=== PATIENT | female | born 1995 | race Caucasian/White ===

== ENCOUNTER 2020-08-29 13:50 | Emergency (ER) | payer OTHER ==
--- NOTE | 2020-08-29 13:57 | PDOC ---
History of Present Illness - General Chief Complaint: Pain, Acute Stated Complaint: bARTHOLIN CYST Time Seen by Provider: 08/29/20 13:54 - History of Present Illness Initial Comments: 08/29/20 13:56 HPI: This is a 24 y/o female with no PMH presenting to the ED with pain and swelling of her left labia x4 days. The pain and swelling grew progressively worse and the patient went to urgent care yesterday. They told her she possibly had a cyst, and prescribed Clindamycin and Clotrimazole. Pt reports they didn't drain it, possibly because it was so swollen. She incidentally has an appointment with her gospel singer (Kate Azevedo) this upcoming , however the pain increased which is what brought her into the ER today. Denies previous hx of Bartholin cyst. Denies vaginal discharge, dysuria, hematuria, fever/chills, N/V. ROS: GENERAL/CONSTITUTIONAL: No fever/chills HEENT: No change in vision. No blurry vision CARDIOVASCULAR: No chest pain, palpitations RESPIRATORY: No shortness of breath GASTROINTESTINAL: No abdominal pain, nausea, vomiting GENITOURINARY: No dysuria, frequency, or change in urination. MUSCULOSKELETAL: No joint or muscle swelling or pain. SKIN: Swelling and pain left side of vagina NEUROLOGIC: No headache, vertigo PMH: Denied PSx: Denied Social Hx: Denied etoh, tobacco, drug use Meds: See nurse note Allergies: See nurse note PE: GENERAL: Awake, alert, and fully oriented, standing in room because of discomfort. HEENT: Normocephalic, atraumatic. PERRLA, EOMI. No conjunctival pallor. Moist mucous membranes. NECK: Normal ROM and supple. No lymphadenopathy, JVD, or masses. CARDIOVASCULAR: Regular rate and rhythm, normal S1 and S2, no murmurs, rubs or gallops PULMONARY: No respiratory distress. Breath sounds equal, clear to auscultation bilaterally. ABDOMEN: Soft, nontender, normoactive bowel sounds. No guarding, no rebound. No masses EXTREMITIES: Normal range of motion, no edema or erythema NEUROLOGICAL: Cranial nerves II through XII grossly intact. PSYCHIATRIC: Appropriate affect. Cooperative PELVIC: Erythema and swelling of left labia. Area of fluctuance of left lower labia. Extremely tender to palpation. MDM: This is a 24 y/o female with no PMH presenting to the ED with pain and swelling of her left labia x4 days. - Significant swelling, erythema and tenderness of left labia - Clear area of fluctuance - I&D as per procedure note - Large amounts of pus was expressed - Patient stable to d/c with follow-up obgyn and return precautions 08/29/20 18:03 Past History - Medical History Allergies/Adverse Reactions: Allergies Allergy/AdvReac Type Severity Reaction Status Date / Time No Known Allergies Allergy Unverified 08/29/20 14:16 Home Medications: Ambulatory Orders Clindamycin 300 mg PO QID 08/29/20 Procedures - Incision and Drainage I&D Site: Left: Bartholin Anesthesia: 1% Lidocaine Volume(ml): 3 Blade Size: 11 Attempts: 1 Plain Packing: No Complications: none Dressing: Yes Discharge - Discharge Information Problems reviewed: Yes Clinical Impression/Diagnosis: Bartholin cyst Condition: Stable Disposition: HOME - Follow up/Referral - Patient Discharge Instructions Patient Printed Discharge Instructions: DI for Bartholin Gland Cyst Additional Instructions: You were seen in the ED today for an infected Bartholin cyst which we drained. Continue taking the Clindamycin that was prescribed to you. You can discontinue the Clotrimazole Follow-up with your Professor Of Musicology on . You can buy Witch Litzy from the stores, soak panty liners in it, and then place it in the area to help with the inflammation. You can use ice as needed for the swelling and pain. You should soak the area in saltwater baths for 20 minutes 2x per day. Return to the ED with any new or worsening symptoms. Return if the pain and swelling worsen, you develop a fever, or if you have any other concerning symptoms. - Post Discharge Activity
--- NOTE | 2020-08-29 14:00 | PDOC ---
Attending Attestation - Resident Resident Name: Uzma Wong - ED Attending Attestation I have performed the following: I have examined & evaluated the patient, The case was reviewed & discussed with the resident, I agree w/resident's findings & plan, Exceptions are as noted - HPI HPI: 24 yo F presents with L sided labial swelling for the past 3 days. She went to an urgent care with the same, was diagnosed with bartholin cyst, started on clindamycin and clotrimazole, and advised to f/u with blood coordinator to have it drained. She has an appointment with her blood coordinator in 2 days, but she was unable to tolerate the pain anymore. Denies fever. +Severe labial pain with vulvar swelling. Unable to sit without difficulty. - Physicial Exam PE: GENERAL: Awake, alert, and fully oriented, in no acute distress HEAD: No signs of trauma EYES: PERRLA, EOMI, sclera anicteric, conjunctiva clear ENT: Auricles normal inspection, hearing grossly normal, nares patent, oropharynx clear without exudates. Moist mucosa NECK: Normal ROM, supple, no lymphadenopathy, JVD, or masses LUNGS: Breath sounds equal, clear to auscultation bilaterally. No wheezes, and no crackles HEART: Regular rate and rhythm, normal S1 and S2, no murmurs, rubs or gallops ABDOMEN: Soft, nontender, normoactive bowel sounds. No guarding, no rebound. No masses EXTREMITIES: Normal range of motion, no edema. No clubbing or cyanosis. No cords, erythema, or tenderness NEUROLOGICAL: Cranial nerves II through XII grossly intact. Normal speech, normal gait. Motor and sensation intact SKIN: Warm, dry, normal turgor, no rashes or lesions noted. : +Significant vulvar swelling to labia minora, worse on L side. +Tenderness and induration to the L labia minora, with a central fluctuant lesion. - Medical Decision Making 08/29/20 14:45 Bartholin cyst was I&D'd as noted in resident note. Copious purulent material obtained on the first attempt with small incision. Patient tolerated well, minimal blood loss. Counseled patient to use cool compresses for the local swelling, witch mani on a pantiliner. Also recommended warm salt water soaks twice per day. Stable for DC home. Discharge - Discharge Information Problems reviewed: Yes Clinical Impression/Diagnosis: Bartholin cyst Condition: Stable Disposition: HOME - Follow up/Referral - Patient Discharge Instructions - Post Discharge Activity
--- OUTSIDE RECORDS SUMMARY | 2020-08-29 14:05 | XMS ---
:1995 Author Organization [facility] Support Name Relationship Address Phone UNK Unavailable Unavailable Unavailable Re-disclosure Warning The records that you are about to access may contain information from federally- assisted alcohol or drug abuse programs. If such information is present, then the following federally mandated warning applies: This information has been disclosed to you from records protected by federal confidentiality rules (42 CFR part 2). The federal rules prohibit you from making any further disclosure of this information unless further disclosure is expressly permitted by the written consent of the person to whom it pertains or as otherwise permitted by 42 CFR part 2. A general authorization for the release of medical or other information is NOT sufficient for this purpose. The Federal rules restrict any use of the information to criminally investigate or prosecute any alcohol or drug abuse patient.The records that you are about to access may contain highly sensitive health information, the redisclosure of which is protected by Article 27-F of the [facility] Public Health law. If you continue you may haveaccess to information: Regarding HIV / AIDS; Provided by facilities licensed or operated by the [facility] Office of Mental Health; or Provided by the [facility] Office for People With Developmental Disabilities. If such information is present, then the following [facility] mandated warning applies: This information has been disclosed to you from confidential records which are protected by state law. State law prohibits you from making any further disclosure of this information without the specific written consent of the person to whom it pertains, or as otherwise permitted by law. Any unauthorized further disclosure in violation of state law may result in a fine or half-way sentence or both. A general authorization for the release of medical or other information is NOT sufficient authorization for further disclosure. Insurance Providers Payer name Policy type Policy ID Covered Covered alliance party's Policy P pina / Coverage alliance party ID relationship to Day Inf ormation type day SELF PAY SP INSURANCE
[2020-08-29 14:10] VITALS: BP 135/81; PULSE 94; TEMP 99.4; BMI 27.4
== END 2020-08-29 14:53 | disposition home or self-care (01) ==
LOC: FER 13:50
DX: N75.0 Cyst of Bartholin's gland (principal)
CPT/HCPCS: 99283-25

== ENCOUNTER 2023-07-13 11:32 | Emergency (ER) | payer OTHER ==
[2023-07-13 12:14] VITALS: BP 127/70; PULSE 90; RESP 16; TEMP 99.3; BMI 31.1
== END 2023-07-13 12:39 | disposition left against medical advice (07) ==
LOC: FER 11:32
DX: R00.2 Palpitations (principal); R06.02 Shortness of breath; R23.2 Flushing; R07.89 Other chest pain; R42 Dizziness and giddiness; Z53.21 Procedure and treatment not carried out due to patient leaving prior to being seen by health care provider
CPT/HCPCS: 93005; 99283-25